=== PATIENT | female | born 1955 | race Caucasian/White ===

== ENCOUNTER 2017-06-18 11:41 | Emergency (ER) | payer OTHER ==
[~2017-06-18] VITALS: Ht 157.5 cm; Wt 62.7 kg
[2017-06-18] MEDS ORDERED: DIAZEPAM 5 MG TABLET ONE (12:24)
[2017-06-18] MEDS ORDERED: ASPIRIN 81 MG TABLET CHEW PO ONE (12:30)
[2017-06-18] MEDS ORDERED: KETOROLAC 30 MG/1 ML IM ONE (12:30)
[2017-06-18] MEDS ORDERED: DIAZEPAM 5 MG TABLET PO ONE (12:30)
[2017-06-18 12:56] LABS: HEMOGLOBIN 13.4 g/dL (11.7-16.4); WHITE BLOOD COUNT 6.7 x10^3/uL (3.4-10)
[2017-06-18 13:05] LABS: BLOOD UREA NITROGEN 17 mg/dL (7-18)
[2017-06-18 13:09] LABS: IS PT STATUS REG ER OR PRE ER? YES
[2017-06-18 13:35] VITALS: BP 111/57
[2017-06-18] MEDS ORDERED: ASPIRIN 81 MG TABLET CHEW ONE (13:55)
== END 2017-06-18 14:06 | disposition home or self-care (01) ==
LOC: ED 13:45
DX: R07.2 Precordial pain (principal); Z79.82 Long term (current) use of aspirin
CPT/HCPCS: 36415; 71010; 80048; 82040; 83880; 84484; 85025; 93005; 99285